=== PATIENT | female | born 1965 | race Caucasian/White ===

== ENCOUNTER 2016-09-12 09:19 | Day surgery (SDC) | payer OTHER ==
[2016-09-12] MEDS ORDERED: LIDOCAINE 2% MDV (20MG/ML) 20ML VIAL IV ONE (11:00)
[2016-09-12] MEDS ORDERED: FENTANYL PF 100MCG/2ML VIAL IV ONE (11:00)
[2016-09-12] MEDS ORDERED: PROPOFOL 10 MG/ML VIAL IV ONE (11:00)
--- NOTE | 2016-09-18 12:25 | Operative Note ---
DATE OF SURGERY: 09/12/2016 REQUESTING PHYSICIAN: Makayla Fuller M.D. POSTOPERATIVE DIAGNOSES: 1. Normal esophagus with no evidence of ulcerative esophagitis. 2. Mild gastritis. 3. Normal duodenum. 4. Normal colon. OPERATION: ESOPHAGOGASTRODUODENOSCOPY and COLONOSCOPY. Surgeon: Tico Leong D.O. Indication for Procedure: This is a 52-year-old female with history of reflux symptoms and poor response to PPI who presented for esophagogastroduodenoscopy. Sedation: Sedation was per Anesthesia. Pulse oximetry was monitored throughout the duration of the procedure to maintain O2 saturation of 90% or greater. Supplemental oxygen was administered via nasal cannula. Cardiac and vital signs were monitored throughout the duration of the procedure, and they were stable. Description of the procedure of esophagogastroduodenoscopy and colonoscopy and risks and benefits of the procedure including the risk of bleeding and perforation, among others, were explained to the patient who voiced understanding and consented to have the procedure done. Physical exam was performed, and the patient was found stable for sedation. PROCEDURE: The patient was placed in the left lateral position and sedation was initiated. A plastic bite block was inserted into the oral cavity. The Olympus GIF-180 gastroscope was then introduced into the oral cavity and advanced to the proximal esophagus without difficulty. The esophageal mucosa was carefully examined upon introduction of the gastroscope. The proximal, mid, and distal esophageal mucosa appeared normal. The gastroscope was then advanced into the stomach, and a surveillance of the stomach revealed diffuse erythema of the gastric body and antrum but no ulcers were noted. The gastroscope was then advanced into the descending duodenum without difficulty and the descending mucosa appeared normal. The gastroscope was then withdrawn through the stomach and retroflexion was thus performed. There were no other lesions noted. The gastroscope was then withdrawn while carefully examining the gastric mucosa and no other lesions were noted. Multiple gastric and duodenal biopsies were obtained. She remained with stable vital signs and was repositioned for colonoscopy. Digital rectal exam was performed and showed small internal hemorrhoids with no palpable rectal masses. The Olympus PCF-180AL colonoscope was then inserted into the rectum under direct visualization and advanced to the cecum without difficulty. The ileocecal valve and appendiceal orifice were identified and photographed. The colonic mucosa was carefully examined upon insertion of the colonoscope. There were no lesions noted. The colonoscope was then withdrawn while carefully examining the colonic mucosal surfaces. No lesions were noted. In the rectum, retroflexion was performed and grade1 internal hemorrhoids were noted. The colonoscope was then withdrawn and the procedures were terminated. The patient tolerated the procedures well without immediate complications. She remained with stable vital signs and was transferred to the Recovery Room. PLAN AND RECOMMENDATIONS: 1. She should be on a high-fiber diet. 2. She is to continue on her proton pump inhibitors. 3. At this point I think she might need 24-hour pH monitoring with impedanace studies and I will be seeing her back in the office. As always, thank you for allowing me to participate in the care of your patient. Tico Leong MD CC: Praveen Tiwari
== END 2016-09-12 11:59 | disposition home or self-care (01) ==
LOC: EDBD → HOP 09:19
PROVIDERS: ATTEND Internal Medicine Gastroenterology
DX: Z12.11 Encounter for screening for malignant neoplasm of colon (principal); R13.10 Dysphagia, unspecified; K29.50 Unspecified chronic gastritis without bleeding
CPT/HCPCS: 00740; 43239; G0121

== ENCOUNTER 2017-07-01 16:43 | Emergency (ER) | payer OTHER ==
[2017-07-01] MEDS ORDERED: KETOROLAC 30 MG/ML VIAL IVP ONE (17:16)
[2017-07-01] MEDS ORDERED: ASPIRIN 81 MG CHEWABLE TABLET PO ONE (17:19)
[2017-07-01 17:27] LABS: BASO % 0.1 % (0-6); EOS % 1.4 % (0-6); GRAN % 61.4 % (47-80); HEMATOCRIT 43.1 % (35.0-47.0); HEMOGLOBIN 13.7 gm/dl (11.6-16.0); LYMPH % 30.3 % (16-45); MEAN CELL VOLUME 88.3 fl (81-97); MEAN CORPUSCULAR HEMOGLOBIN 28.1 pg (27-33); MEAN CORPUSCULAR HGB CONC 31.8 g/dl (32-36); MEAN PLATELET VOLUME 9.2 fl (7.4-10.4); MONO % 6.8 % (0-9); PLATELET COUNT 290 K/uL (130-400); RED BLOOD COUNT 4.88 M/uL (3.80-5.40); RED CELL DISTRIBUTION WIDTH 13.6 % (11.5-14.5); WHITE BLOOD COUNT W/O DIFF 8.1 K/uL (4.2-12.2)
[2017-07-01 17:43] LABS: BLOOD UREA NITROGEN 14 mg/dL (6-20); CREATININE 0.6 mg/dL (0.5-0.9); EST GLOMERULAR FILTRATION RATE > 60 mL/min
[2017-07-01 17:46] LABS: GLUCOSE,RANDOM 98 mg/dL (74-109)
[2017-07-01 17:51] LABS: CKMB 1.1 ng/mL (<3.77)
--- NOTE | 2017-07-01 18:17 | Emergency Department Record ---
History of Present Illness - General Chief Complaint: Chest Pain Stated Complaint: CHEST PAIN/BACK PAIN/NAUSEA Time Seen by Provider: 07/01/17 17:15 Mode of Arrival: Ambulatory - History of Present Illness Initial Comments: anterior chest wall pain worse with palpation and rotation of her chest and this has been going on for 2 months and she came in for evaluation. Onset/Timin -: Hour(s) Onset: During rest Pain Location: Substernal Pain Radiation: Back Severity scale (1-10): 5 Quality: Heaviness Consistency: Constant Improves With: Nothing Worsens With: Nothing Treatments Prior to Arrival: None - Related Data On Oral Contraceptives: No Previous Rx's Medication Instructions Recorded Naproxen [Naprosyn] 500 mg PO Q12H #20 tab. 07/01/17 Allergies Allergy/AdvReac Type Severity Reaction Status Date / Time No Known Allergies Allergy Unverified 12/04/16 11:11 Travel Screening - Travel/Exposure Within Last 30 Days Have you traveled within the last 30 days?: No Review of Systems Reviewed: No additional complaints except as noted below Constitutional: Reports: As per HPI. Denies: Chills, Fever, Malaise, Night sweats, Weakness, Weight change Eyes: Reports: As per HPI, Vision change. Denies: Eye pain, Photophobia ENT: Reports: As per HPI. Denies: Congestion, Dental pain, Ear pain, Epistaxis , Hearing loss, Throat pain Respiratory: Reports: As per HPI. Denies: Cough, Dyspnea, Hemoptysis, Stridor, Wheezes Cardiovascular: Reports: As per HPI. Denies: Arrhythmia, Chest pain, Dyspnea on exertion, Edema, Murmurs, Orthopnea, Palpitations, Paroxysmal nocturnal dyspnea, Rheumatic Fever, Syncope Endocrine: Reports: As per HPI. Denies: Fatigue, Heat or cold intolerance, Polydipsia, Polyuria Gastrointestinal: Reports: As per HPI. Denies: Abdominal pain, Constipation, Diarrhea, Hematemesis, Hematochezia, Melena, Nausea, Vomiting Genitourinary: Reports: As per HPI. Denies: Abnormal menses, Discharge, Dyspareunia, Dysuria, Frequency, Hematuria, Incontinence, Retention, Urgency Musculoskeletal: Reports: As per HPI. Denies: Arthralgia, Back pain, Gout, Joint swelling, Myalgia, Neck pain Skin: Reports: As per HPI. Denies: Bruising, Change in color, Change in hair/ nails, Lesions, Pruritus, Rash Neurological: Reports: As per HPI. Denies: Abnormal gait, Confusion, Headache, Numbness, Paresthesias, Seizure, Tingling, Tremors, Vertigo, Weakness Psychiatric: Reports: As per HPI. Denies: Anxiety, Auditory hallucinations, Depression, Homicidal thoughts, Suicidal thoughts, Visual hallucinations Hematological/Lymphatic: Reports: As per HPI. Denies: Anemia, Blood Clots, Easy bleeding, Easy bruising, Swollen glands Past Medical History - SOCIAL HISTORY Smoking Status: Former smoker Alcohol Use: None Drug Use: None - RESPIRATORY Hx Respiratory Disorders: No - CARDIOVASCULAR Hx Cardio Disorders: No - NEURO Hx Neuro Disorders: No - GI Hx GI Disorders: Yes Hx Reflux: Yes Hx Ulcer: Yes (as child) - Hx Genitourinary Disorders: No - ENDOCRINE Hx Endocrine Disorders: No - MUSCULOSKELETAL Hx Musculoskeletal Disorders: Yes Hx Fibromyalgia: Yes - PSYCH Hx Psych Problems: Yes Hx Depression: Yes - HEMATOLOGY/ONCOLOGY Hx Hematology/Oncology Disorders: No Family Medical History Any Significant Family History?: Yes Hx Cancer: Father, Mother Hx Heart Disease: Father, Mother Physical Exam - General General Appearance: Alert, Oriented x3, Cooperative, No acute distress - Head Head exam: Normal inspection - Eye Eye exam: Normal appearance, PERRL Pupils: Normal accommodation - ENT ENT exam: Normal exam, Mucous membranes moist, Normal external ear exam, Normal orophraynx, TM's normal bilaterally Ear exam: Normal external inspection. negative: External canal tenderness Nasal Exam: Normal inspection. negative: Discharge, Sinus tenderness Mouth exam: Normal external inspection, Tongue normal Teeth exam: Normal inspection. negative: Dental caries Throat exam: Normal inspection. negative: Tonsillar erythema, Tonsillar exudate - Neck Neck exam: Normal inspection, Full ROM. negative: Tenderness - Respiratory Respiratory exam: Normal lung sounds bilaterally. negative: Respiratory distress - Cardiovascular Cardiovascular Exam: Regular rate, Normal rhythm, Normal heart sounds - GI/Abdominal GI/Abdominal exam: Soft, Normal bowel sounds. negative: Tenderness - Rectal Rectal exam: Deferred - exam: Deferred - Extremities Extremities exam: Normal inspection, Full ROM, Normal capillary refill. negative: Tenderness - Back Back exam: Reports: Normal inspection, Full ROM. Denies: Muscle spasm, Rash noted, Tenderness - Neurological Neurological exam: Alert, Normal gait, Oriented X3, Reflexes normal - Psychiatric Psychiatric exam: Normal affect, Normal mood - Skin Skin exam: Dry, Intact, Normal color, Warm Course Vital Signs 07/01/17 16:51 Temperature 97.7 F Pulse Rate 82 Respiratory 20 Rate Blood Pressure 131/85 Pulse Ox 99 - Reevaluation(s) Reevaluation #1: 07/01/17 18:14 07/01/17 18:17 Medical Decision Making - Data Complexity MDM Data: Labs Ordered and/or Reviewed, EKG Ordered and/or Reviewed (No acute changes) - Lab Data Result diagrams: 07/01/17 17:05 07/01/17 17:05 Lab Results 07/01/17 07/01/17 07/01/17 Range/Units 17:05 17:05 17:05 WBC 8.1 (4.2-12.2) K/uL RBC 4.88 (3.80-5.40) M/uL Hgb 13.7 (11.6-16.0) gm/dl Hct 43.1 (35.0-47.0) % MCV 88.3 (81-97) fl MCH 28.1 (27-33) pg MCHC 31.8 L (32-36) g/dl RDW 13.6 (11.5-14.5) % Plt Count 290 (130-400) K/uL MPV 9.2 (7.4-10.4) fl Gran % 61.4 (47-80) % Lymphocytes % 30.3 (16-45) % Monocytes % 6.8 (0-9) % Eosinophils % 1.4 (0-6) % Basophils % 0.1 (0-6) % APTT 26.90 (24.5-39.1) SECONDS Sodium 142 (136-145) mmol/L Potassium 3.8 (3.4-4.5) mmol/L Chloride 103 (98-107) mmol/L Carbon Dioxide 26.0 (22-29) mmol/L Anion Gap 13.0 (7-16) BUN 14 (6-20) mg/dL Creatinine 0.6 (0.5-0.9) mg/dL Estimated GFR > 60 mL/min Random Glucose 98 (74-109) mg/dL Calcium 10.0 (8.6-10.0) mg/dL CK-MB (CK-2) 1.1 (<3.77) ng/mL Troponin T < 0.010 (0-0.010) ng/mL Disposition Clinical Impression: Chest wall pain, Costochondritis, acute Disposition: Home, Self-Care Condition: (1) Good Instructions: Costochondritis (ED) Additional Instructions: heat to back and chest follow up with family Dr in 2-8 days naprosyn 500 mg bid Prescriptions: Naproxen [Naprosyn] 500 mg PO Q12H #20 tab.dr Forms: Patient Portal Access Time of Disposition: 20:12 Quality - Quality Measures Quality Measures: N/A - Blood Pressure Screening Does Patient Have Any of the Following: No Blood Pressure Classification: Pre-Hypertensive BP Reading Systolic Measurement: 131 Diastolic Measurement: 85 Screening for High Blood Pressure: < Pre-Hypertensive BP, F/U Documented > [ [id number]] Pre-Hypertensive Follow-up Interventions: Referral to alternative/primary care provider.
--- NOTE | 2017-07-01 19:52 | RADIOLOGY REPORT ---
EXAM: CHEST 2 VIEWS HISTORY: CHEST PAIN BEGINNING ABOUT 1:00 P.M. TODAY. TECHNIQUE: PA and lateral views. COMPARISON: No prior chest x-ray with which to compare. FINDINGS: Heart size is normal. No acute infiltrate is seen. No pleural effusion or pneumothorax evident. There is an approximately 12 mm retrosternal nodule on the lateral view projecting just to the right of the heart on the frontal view, which was present on a prior chest CT of 12/04/16 as well representing a densely calcified granuloma within the right middle lobe. IMPRESSION: 1. APPROXIMATELY 12 MM CALCIFIED GRANULOMA RIGHT MIDDLE LOBE ANTEROMEDIALLY. 2. THE CHEST APPEARS OTHERWISE NEGATIVE. NO ACUTE INFILTRATE EVIDENT. JOB NUMBER: [id number] MTDD
== END 2017-07-01 20:19 | disposition home or self-care (01) ==
LOC: ER 16:43
DX: M94.0 Chondrocostal junction syndrome [Tietze] (principal); R07.89 Other chest pain; R11.0 Nausea; Z87.891 Personal history of nicotine dependence
CPT/HCPCS: 99284 ×2; 96374; 85025; 85730; 82553; 80048; 84484; 71020; 93005; 93010; J1885